=== PATIENT | female | born 1970 | race Caucasian/White ===

== ENCOUNTER 2022-05-08 17:37 | Inpatient (IN) | payer BC, SELFPAY ==
[2022-05-08 17:39] VITALS: BP 139/94; PULSE 114; RESP 16; TEMP 36.7; O2SAT 94
--- NOTE | 2022-05-08 18:19 | PC.NURSE ---
51Y/O FEMALE IS A DIRECT ADMIT FROM [facility] TO NPU ROOM 154-2 DUE TO POSSIBLE OVERDOSE ON LORAZEPAM OR DIAZEPAM AFTER FINDING OUT HER WAS CHEATING. PATIENT STATES SHE TOOK LORAZEPAM 0.5 MG BUT DO NOT KNOW HOW MANY WEDNESDAY NIGHT, 05/07/22. PATIENT WAS TAKEN TO [facility]. LAB WAS DONE AND REFLECTS NO DRUGS IN HER SYSTEM. PATIENT IS ALERT AND INDEPENDENT OF ADL'S. MEDICAL HX : MULTIPLE SCLEROSIS. MEDICATION BROUGHT WITH HER AND LOCKED UP. NKDA. DENIES SI/HI; AVH. PT. WAS VERY TEARFUL AND ANXIOUS DURING ADMIT ASSESSMENT. SKIN ASSESSMENT DONE. NO OPEN AREAS OR SKIN ABRASIONS NOTED. ORIENTED TO UNIT.
[2022-05-08] MEDS: diazePAM 5 mg Tablet PO (21:47)
[2022-05-08 22:00] VITALS: BP 139/83; PULSE 102; RESP 16; TEMP 36.6; O2SAT 93
[2022-05-09 06:00] VITALS: BP 128/86; PULSE 101; RESP 15; TEMP 36.4; O2SAT 95
[2022-05-09] MEDS: fluoxetine 20 mg Capsule 40 MG PO (09:08)
[2022-05-09] MEDS: cholecalciferol (vitamin D3) 5,000 unit Tablet 5000 UNIT PO (09:11)
--- NOTE | 2022-05-09 09:11 | PC.NURSE ---
Vitamin D3 will not scan so had to manually enter administration into MAR. Verified medication strength, name, dosage, time, route, and patient by myself and one additional RN before administering.
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
[2022-05-09 14:00] VITALS: BP 132/85; PULSE 91; RESP 18; TEMP 36.6; O2SAT 95
--- NOTE | 2022-05-09 18:57 | PC.NURSE ---
Refused fish oil at 1800. Stated she did not eat much, so she didn't want to take it because it would make her have diarrhea.
[2022-05-09 21:05] VITALS: BP 149/94; PULSE 92; RESP 17; TEMP 36.4; O2SAT 94
[2022-05-09] MEDS: ibuprofen 600 mg Tablet PO (21:36)
[2022-05-09] MEDS: hyDROXYzine 25 mg Capsule 50 MG PO (21:40)
[2022-05-10 06:00] VITALS: RESP 18
[2022-05-10] MEDS: omega-3 fatty acids 1,000 mg Capsule 1000 MG PO ×2 (09:12→18:15)
[2022-05-10] MEDS: cholecalciferol (vitamin D3) 5,000 unit Tablet 5000 UNIT PO (09:13)
[2022-05-10] MEDS: fluoxetine 20 mg Capsule 40 MG PO (09:13)
--- NOTE | 2022-05-10 10:39 | W.PM.NPUPNS ---
Subjective NPU Subjective: Patient presented today reporting that she feels she is ready to return to her home. We discussed concerns about inconsistencies in her story but were ultimately able to talk to her daughter who plans to be with her. We discussed making sure the treatment team was able to make appropriate appointments in the morning. We discussed a tentative plan for discharge in the morning. Mental Status Exam MSE Comments: This is an overweight white female in hospital scrubs with adequate grooming and eye contact. No abnormal movements except for mild psychomotor retardation. Cooperative with exam in mild distress. Speech was slightly decreased volume and normal rate. Mood described as better, affect is less subdued and less tearful. Thought process, organized. Thought content: patient denies suicidal or homicidal ideation, no delusions reported or noted and denies any auditory or visual hallucinations. Attention and concentration are intact and memory appeared reliable but none were formally tested. She is alert and oriented times three. Insight and judgment are fair. Impulse control is limited. Vitals/I&O/Wt Last Vital Signs Temp 97.6 F 05/09/22 21:05 Pulse 92 05/09/22 21:05 Resp 18 05/10/22 06:00 BP 149/94 05/09/22 21:05 Pulse Ox 94 05/09/22 21:05 O2 Del Method 05/09/22 21:05 Weight last 48 hrs Weight 98.997 kg Weight 98.997 kg Weight 79.379 kg A&P Assessment and plan (1) Major depressive disorder: (2) Anxiety disorder: (3) Partner relational problem: (4) Intentional overdose: Plan This is a 51 year old white woman with a history of loss, symptoms of depression and anxiety, and genetic loading for mental health issues who presents after finding out her current was cheating on her reporting success on her current medications and an openness to continue those medications. 1. Continue current medications 2. Encourage individual, group and milieu therapy 3. Continue q-15 minute check for safety 4. Recommend sober living treatment at the highest level of care to which the patient is willing to commit. Involuntary Hold Information 96 Hour Hold: 96 Hour Involuntary Admission: No Attestations NPU Medical Necessity Statement*: Inpatient hospitalization is medically necessary and the clinically appropriate intervention at this time. We will monitor medications and make changes as indicated. Likely length of stay is 1-3 days. Coding Level of Care Code Acute Code for [facility] Fwd Diagnoses Major depressive disorder F32.9 Anxiety disorder F41.9 Partner relational problem Z63.0 Intentional overdose T50.563T
[2022-05-10 14:00] VITALS: BP 132/84; PULSE 92; RESP 18; TEMP 36.7; O2SAT 94
[2022-05-10 19:56] VITALS: BP 143/72; PULSE 98; RESP 18; TEMP 36.8; O2SAT 95
[2022-05-10] MEDS: ibuprofen 600 mg Tablet PO (20:51)
[2022-05-10] MEDS: hyDROXYzine 25 mg Capsule 50 MG PO (20:52)
--- NOTE | 2022-05-11 03:56 | PC.NURSE ---
at bedtime ibuprofen given for headache, vistaril as pt was tearful. She stated it was ok to cry, she needed to get it out, My cheated on me, but i'm looking forward to being to my daughters and grand babies. I love to cook and can't wait to see them. provided encouragement and support.
[2022-05-11 06:00] VITALS: BP 131/95; PULSE 98; RESP 18; TEMP 36.5; O2SAT 94
[2022-05-11] MEDS: cholecalciferol (vitamin D3) 5,000 unit Tablet 5000 UNIT PO (07:52)
[2022-05-11] MEDS: fluoxetine 20 mg Capsule 40 MG PO (07:53)
[2022-05-11] MEDS: omega-3 fatty acids 1,000 mg Capsule 1000 MG PO (07:53)
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
--- NOTE | 2022-05-11 11:01 | PC.NURSE ---
discharge med called into [facility] in [place], [place] @ [phone], spoke to Maddie omega 3 fatty acids 1,000 mg po BID, qty 60, no refills
[2022-05-11 11:04] VITALS: BP 131/95; PULSE 98; RESP 18; TEMP 36.5; O2SAT 94
== END 2022-05-11 12:10 | disposition home or self-care (01) | DRG 881 ==
PROVIDERS: Admitting Provider Psychiatry & Neurology Psychiatry; Visit Provider Psychiatry & Neurology Psychiatry
DX: F32.9 Major depressive disorder, single episode, unspecified (principal); F41.9 Anxiety disorder, unspecified; T42.4X2D Poisoning by benzodiazepines, intentional self-harm, subsequent encounter; G35 Multiple sclerosis; Z63.0 Problems in relationship with spouse or partner; Z63.4 Disappearance and death of family member; Z62.810 Personal history of physical and sexual abuse in childhood; Z87.891 Personal history of nicotine dependence; Z81.8 Family history of other mental and behavioral disorders
CPT/HCPCS: 97150; 97165